=== PATIENT | male | born 1995 | race American Indian/Alaskan Native ===

== ENCOUNTER 2020-12-03 04:08 | Emergency (ER) | payer SELFPAY ==
[2020-12-03] MEDS ORDERED: SODIUM CHLORIDE 0.9% 1000 ML 1,000 ML IV ONE ×4 (04:25→12:43)
--- NOTE | 2020-12-03 04:28 | Event Note ---
ED Screening Note Date of service: 12/03/20 Time: 04:26 ED Screening Note: This is a 24-year-old -[place] male who presents for right flank pain with hematuria x2 days. Patient states nausea no vomiting to this point no fever or chills. There is dysuria frequency and urgency. No history of renal stones. This initial assessment/diagnostic orders/clinical plan/treatment(s) is/are subject to change based on patients health status, clinical progression and re- assessment by fellow clinical providers in the ED. Further treatment and workup at subsequent clinical providers discretion. Patient/guardian urged not to elope from the ED as their condition may be serious if not clinically assessed and managed. Initial orders include: ua, cbc, cmp, iv, ct abd pelvis
[2020-12-03 05:14] LABS: Hematocrit 44.3 % (35.5-45.6); Hemoglobin 15.4 gm/dl (11.8-15.2); Mean Corpuscular HGB Conc 35 % (32-34); Mean Corpuscular Volume 84 fl (84-94); Platelet Count 166 K/mm3 (140-440); Red Blood Count 5.29 M/mm3 (3.65-5.03); Red Cell Distribution Width 13.1 % (13.2-15.2)
[2020-12-03 05:49] LABS: Alanine Aminotransferase 259 units/L (7-56); Albumin 3.9 g/dL (3.9-5); BUN/Creatinine Ratio 12; Blood Urea Nitrogen 11 mg/dL (9-20); Calcium 8.5 mg/dL (8.4-10.2); Hemolysis Index 13
--- NOTE | 2020-12-03 05:56 | Cat Scan Report ---
CT ABDOMEN AND PELVIS WITHOUT CONTRAST HISTORY: Right-sided flank pain. COMPARISON: None TECHNIQUE: Routine abdominal and pelvic CT exam performed without contrast. Lack of intravenous cont rast limits evaluation of the vascular and solid organs.. All CT scans at this location are performed using CT dose reduction for ALARA by means of automated exposure control. FINDINGS: CT ABDOMEN: Lung Bases: No significant abnormality. Liver: No significant abnormality. Biliary: No significant abnormality. Spleen: No significant abnormality. Unenlarged. Pancreas: No significant abnormality. Adrenals: No significant abnormality. Kidneys: No significant abnormality. Lymphatics: No lymphadenopathy. Vasculature: No significant abnormality. Bowel/Peritoneum: No significant abnormality. No free air. No free fluid. Normal appendix. CT PELVIC: : No significant abnormality. Lymphatics: No lymphadenopathy. Osseous Structures: No aggressive appearing osseous lesions. Additional Findings: None IMPRESSION: 1. No acute findings. Signer Name: Victor Hugo Monteiro MD Signed: 12/03/2020 5:52 AM Workstation Name: [id number]
[2020-12-03 06:22] LABS: Anisocytosis 1+; Total Cells Counted 100
[2020-12-03 06:23] LABS: Platelet Estimate Consistent w Auto
--- NOTE | 2020-12-03 07:09 | Emergency Department Report ---
HPI - General Chief Complaint: Abdominal Pain Time Seen by Provider: 12/03/20 06:52 - HPI HPI: Room 36 The patient is a 24-year-old male present with a chief complaint of "feeling bad." Patient states 5 days ago he developed diarrhea, feeling weak and dark urine. Patient complain of bilateral side pain and nausea without vomiting. Patient states he had a subjective fever and took TheraFlu. Patient denies cough or dysuria. Patient admits to periumbilical abdominal pain which began around the same time. Of note the patient is HIV positive and has never been on medication since diagnosed 10 years ago. Patient is not aware of his CD4 count ED Past Medical Hx - Past Medical History Previous Medical History?: Yes Hx HIV: Yes (Unknown CD4) - Surgical History Past Surgical History?: No - Family History Family history: no significant - Social History Smoking Status: Current Every Day Smoker (1/7 pack/day) Substance Use Type: Alcohol (Occasional), Marijuana ED Review of Systems ROS: Stated complaint: BACK PAIN/ URINATING BLOOD Other details as noted in HPI Constitutional: fever (Subjective) Eyes: denies: eye pain ENT: denies: throat pain Respiratory: denies: cough Cardiovascular: denies: chest pain Endocrine: no symptoms reported Gastrointestinal: abdominal pain, nausea, diarrhea. denies: vomiting Genitourinary: denies: dysuria, hematuria Musculoskeletal: back pain Neurological: denies: headache Physical Exam - Physical Exam Vital Signs: Vital Signs 12/03/20 04:23 Temperature 98.9 F Pulse Rate 104 H Respiratory 18 Rate Blood Pressure 121/75 O2 Sat by Pulse 98 Oximetry Physical Exam: GENERAL: The patient is well-developed well-nourished male lying on stretcher not appearing to be in acute distress. [] HEENT: Normocephalic. Atraumatic. Extraocular motions are intact. Patient has moist mucous membranes. NECK: Supple. Trachea midline CHEST/LUNGS: Clear to auscultation. There is no respiratory distress noted. HEART/CARDIOVASCULAR: Regular. There is no tachycardia. There is no gallop rub or murmur. ABDOMEN: Abdomen is soft, with tenderness to palpation in the midepigastric r egion. Patient has normal bowel sounds. There is no abdominal distention. SKIN: There is no rash. There is no edema. There is no diaphoresis. NEURO: The patient is awake, alert, and oriented. The patient is cooperative. The patient has no focal neurologic deficits. The patient has normal speech MUSCULOSKELETAL: There is bilateral CVA tenderness left greater than right. There is no limitation range of motion. There is no evidence of acute injury. ED Course Vital Signs 12/03/20 04:23 Temperature 98.9 F Pulse Rate 104 H Respiratory 18 Rate Blood Pressure 121/75 O2 Sat by Pulse 98 Oximetry ED Medical Decision Making - Lab Data Result diagrams: 12/03/20 04:29 12/03/20 08:48 Laboratory Tests 12/03/20 12/03/20 12/03/20 04:26 04:29 04:30 WBC 6.7 RBC 5.29 H Hgb 15.4 H Hct 44.3 MCV 84 MCH 29 MCHC 35 H RDW 13.1 L Plt Count 166 [place] % (Auto) Refinery Operator Reforming Unit Add Manual Diff Complete Total Counted 100 Seg Neuts % (Manual) 59.0 Lymphocytes % (Manual) 23.0 Reactive Lymphs % (Man) 1.0 Monocytes % (Manual) 16.0 H Eosinophils % (Manual) 1.0 Nucleated RBC % Not Reportable Seg Neutrophils # Man 4.0 Band Neutrophils # 0.0 Lymphocytes # (Manual) 1.5 Abs React Lymphs (Man) 0.1 Monocytes # (Manual) 1.1 H Eosinophils # (Manual) 0.1 Basophils # (Manual) 0.0 Metamyelocytes # 0.0 Myelocytes # 0.0 Promyelocytes # 0.0 Blast Cells # 0.0 WBC Morphology Not Reportable Hypersegmented Neuts Not Reportable Hyposegmented Neuts Not Reportable Hypogranular Neuts Not Reportable Smudge Cells Not Reportable Toxic Granulation Not Reportable Toxic Vacuolation Not Reportable Dohle Bodies Not Reportable Pelger-Huet Anomaly Not Reportable Buddy Rods Not Reportable Platelet Estimate Consistent w auto Clumped Platelets Not Reportable Plt Clumps, EDTA Not Reportable Large Platelets Not Reportable Giant Platelets Not Reportable Platelet Satelliting Not Reportable Plt Morphology Comment Not Reportable RBC Morphology Not Reportable Dimorphic RBCs Not Reportable Polychromasia Not Reportable Hypochromasia Not Reportable Poikilocytosis Not Reportable Anisocytosis 1+ Microcytosis Not Reportable Macrocytosis Not Reportable Spherocytes Not Reportable Pappenheimer Bodies Not Reportable Sickle Cells Not Reportable Target Cells Not Reportable Tear Drop Cells Not Reportable Ovalocytes Not Reportable Helmet Cells Not Reportable [place] Bodies Not Reportable [place] Rings Not Reportable Felicita Cells Not Reportable Bite Cells Not Reportable Crenated Cell Not Reportable Elliptocytes Not Reportable Acanthocytes (Spur) Not Reportable Rouleaux Not Reportable Hemoglobin C Crystals Not Reportable Schistocytes Not Reportable Malaria parasites Not Reportable Ran Bodies Not Reportable Hem Pathologist Commnt No Sodium 132 L Potassium 4.2 Chloride 93.2 L Carbon Dioxide 28 Anion Gap 15 BUN 11 Creatinine 0.9 Estimated GFR > 60 BUN/Creatinine Ratio 12 Glucose 101 H Calcium 8.5 Total Bilirubin 0.40 AST 1670 H ALT 259 H Alkaline Phosphatase 64 Total Creatine Kinase Total Protein 8.0 Albumin 3.9 Albumin/Globulin Ratio 1.0 Lipase Urine Color Nelli Urine Turbidity Cloudy Urine pH TNR Ur Specific [place] TNR Urine Protein TNR Urine Glucose (UA) TNR Urine Ketones TNR Urine Blood TNR Urine Nitrite TNR Ur Reducing Substances TNR Urine Bilirubin TNR Urine Ictotest TNR Urine Urobilinogen TNR Ur Leukocyte Esterase TNR Urine WBC (Auto) 4.0 Urine RBC (Auto) 2.0 U Epithel Cells (Auto) 1.0 Urine Bacteria (Auto) 3+ 12/03/20 12/03/20 12/03/20 04:30 08:48 08:48 WBC RBC Hgb Hct MCV MCH MCHC RDW Plt Count [place] % (Auto) Add Manual Diff Total Counted Seg Neuts % (Manual) Lymphocytes % (Manual) Reactive Lymphs % (Man) Monocytes % (Manual) Eosinophils % (Manual) Nucleated RBC % Seg Neutrophils # Man Band Neutrophils # Lymphocytes # (Manual) Abs React Lymphs (Man) Monocytes # (Manual) Eosinophils # (Manual) Basophils # (Manual) Metamyelocytes # Myelocytes # Promyelocytes # Blast Cells # WBC Morphology Hypersegmented Neuts Hyposegmented Neuts Hypogranular Neuts Smudge Cells Toxic Granulation Toxic Vacuolation Dohle Bodies Pelger-Huet Anomaly Buddy Rods Platelet Estimate Clumped Platelets Plt Clumps, EDTA Large Platelets Giant Platelets Platelet Satelliting Plt Morphology Comment RBC Morphology Dimorphic RBCs Polychromasia Hypochromasia Poikilocytosis Anisocytosis Microcytosis Macrocytosis Spherocytes Pappenheimer Bodies Sickle Cells Target Cells Tear Drop Cells Ovalocytes Helmet Cells [place] Bodies [place] Rings Felicita Cells Bite Cells Crenated Cell Elliptocytes Acanthocytes (Spur) Rouleaux Hemoglobin C Crystals Schistocytes Malaria parasites Ran Bodies Hem Pathologist Commnt Sodium 133 L Potassium 4.1 Chloride 95.6 L Carbon Dioxide 31 H Anion Gap 11 BUN 10 Creatinine 0.8 Estimated GFR > 60 BUN/Creatinine Ratio 13 Glucose 94 Calcium 8.1 L Total Bilirubin 0.30 AST 1528 H ALT 241 H Alkaline Phosphatase 54 Total Creatine Kinase 7 L 57790 H Total Protein 7.1 Albumin 3.4 L Albumin/Globulin Ratio 0.9 Lipase 38 Urine Color Urine Turbidity Urine pH Ur Specific [place] Urine Protein Urine Glucose (UA) Urine Ketones Urine Blood Urine Nitrite Ur Reducing Substances Urine Bilirubin Urine Ictotest Urine Urobilinogen Ur Leukocyte Esterase Urine WBC (Auto) Urine RBC (Auto) U Epithel Cells (Auto) Urine Bacteria (Auto) - Differential Diagnosis Rhabdomyolysis, pancreatitis, peptic ulcer disease, pyelonephritis, Critical care attestation.: If time is entered above; I have spent that time in minutes in the direct care of this critically ill patient, excluding procedure time. ED Disposition Clinical Impression: Rhabdomyolysis, Transaminitis Disposition: OP ADMIT IP TO THIS HOSP Is pt being admited?: Yes Does the pt Need Aspirin: No Condition: Fair Referrals: PRIMARY CARE, [Primary Care Provider] - 3-5 Days Time of Disposition: 11:01 (Hospitalist notified (Dr. Pearson))
[2020-12-03 07:33] LABS: Bacteria,Urine 3+ /HPF (Negative)
[2020-12-03 07:44] LABS: Color,Urine Amber (Yellow)
[2020-12-03 07:45] LABS: Bilirubin,Urine TNR (Negative); Blood,Urine TNR (Negative); PH,Urine TNR (5.0-7.0); Protein,Urine TNR mg/dL (Negative)
[2020-12-03 07:46] LABS: Ictotest,Urine TNR (Negative); Urobilinogen,Urine TNR mg/dL (<2.0)
--- NOTE | 2020-12-03 08:57 | Ultrasound Report ---
ULTRASOUND ABDOMEN, LIMITED (RIGHT UPPER QUADRANT) INDICATION: Abdominal pain, elevated LFTs. COMPARISON: CT scan dated 12/03/2020 FINDINGS: Pancreas: Visualized portion shows no significant abnormality. Liver: Normal. Gallbladder: Normal. Bile ducts: Normal. Common Bile Duct measures 3 mm. Free fluid: None. Additional Findings: None. IMPRESSION: 1. No sonographic abnormality of the right upper quadrant. Signer Name: Robb Zelaya MD Signed: 12/03/2020 8:53 AM Workstation Name: [id number]
[2020-12-03 10:02] LABS: Alanine Aminotransferase 241 units/L (7-56); Albumin 3.4 g/dL (3.9-5); BUN/Creatinine Ratio 13; Blood Urea Nitrogen 10 mg/dL (9-20); Calcium 8.1 mg/dL (8.4-10.2); Hemolysis Index 0
[2020-12-03 12:50] LABS: Alanine Aminotransferase 220 units/L (7-56); Albumin 3.1 g/dL (3.9-5); Blood Urea Nitrogen 9 mg/dL (9-20); Hemolysis Index 20
[2020-12-03 12:55] LABS: BUN/Creatinine Ratio 13
[2020-12-03 13:34] VITALS: BP 138/73
[2020-12-03 14:28] LABS: Hepatitis B Surface Antigen Non-Reactive (Negative); Hepatitis C Virus Antibody Non-Reactive (NonReactive)
--- NOTE | 2020-12-03 14:47 | Event Note ---
Date: 12/03/20 24 YO Male with Nicotine Dependence, Medication Noncompliance, HIV presents to ED for evaluation. Pt presents to ED for evaluation of loose stools, feeling weak and dark urine. Patient seen and evaluated in the emergency department. All lab and imaging studies reviewed. Patient treated with IV fluid resuscitation therapy with reported improvement in symptoms. Patient counseled regarding noncompliance with HIV treatment, as well as lack of outpatient follow-up. Patient signed out AMA prior to completion of work-up. Patient informed that further noncompliance may result in worsening symptoms and . Patient knowledges understanding instructions and signed out AGAINST MEDICAL ADVICE. Case management consulted. Patient given follow-up for outpatient infectious disease clinic. GENERAL: The patient is well-developed well-nourished male lying on stretcher not appearing to be in acute distress. [] HEENT: PERRL/EOMI. Normocephalic. Atraumatic. Extraocular motions are intact. Patient has moist mucous membranes. NECK: Supple. Trachea midline CHEST/LUNGS: Clear to auscultation. There is no respiratory distress noted. HEART/CARDIOVASCULAR: Regular. There is no tachycardia. There is no gallop rub or murmur. ABDOMEN: Abdomen is soft, NT, ND, +BS, No HSM. Patient has normal bowel sounds. There is no abdominal distention. SKIN: There is no rash. There is no edema. There is no diaphoresis. NEURO: The patient is awake, alert, and oriented. The patient is cooperative. The patient has no focal neurologic deficits. The patient has normal speech MUSCULOSKELETAL: 5/5 BUE/BLE. There is no limitation range of motion. There is no evidence of acute injury.
== END 2020-12-03 13:36 | disposition left against medical advice (07) ==
LOC: ED 04:08
DX: M62.82 Rhabdomyolysis (principal); R74.01 Elevation of levels of liver transaminase levels; F17.200 Nicotine dependence, unspecified, uncomplicated; F12.10 Cannabis abuse, uncomplicated; Z21 Asymptomatic human immunodeficiency virus [HIV] infection status; Z79.899 Other long term (current) drug therapy
CPT/HCPCS: 36415; 74176; 76705; 80053; 80074; 81001; 82550; 83690; 85007; 85025; 96360; 96361; 99284; J7030

== ENCOUNTER 2021-07-31 09:28 | Emergency (ER) | payer SELFPAY ==
--- NOTE | 2021-07-31 10:05 | Emergency Department Report ---
ED General Adult HPI - General Chief complaint: Back Pain/Injury Stated complaint: SWOLLEN TESTICAL Time Seen by Provider: 07/31/21 10:01 Source: patient Mode of arrival: Ambulatory Limitations: No Limitations - History of Present Illness Initial comments: Patient is 25 years old male with history of HIV. Patient presented to the ER complaining of bilateral scrotal swelling and pain for the last 3 days. Patient denied any recent injury or trauma. Patient also describes a burning sensation with urination. Patient denied any fever or chills. Patient stated that he is compliant with his medication. -: days(s) (3) - Related Data Allergies Allergy/AdvReac Type Severity Reaction Status Date / Time No Known Allergies Allergy Verified 07/31/21 09:29 ED Review of Systems ROS: Stated complaint: SWOLLEN TESTICAL Other details as noted in HPI Comment: All other systems reviewed and negative Constitutional: denies: chills, fever Respiratory: denies: cough, shortness of breath, SOB with exertion, SOB at rest Cardiovascular: denies: chest pain, palpitations Gastrointestinal: denies: abdominal pain, nausea, vomiting Genitourinary: urgency, dysuria, testicular pain Musculoskeletal: back pain Neurological: denies: headache, weakness, numbness, paresthesias, confusion, abnormal gait ED Past Medical Hx - Past Medical History Hx HIV: Yes (Unknown CD4) - Social History Smoking Status: Current Every Day Smoker (1/7 pack/day) Substance Use Type: Alcohol (Occasional), Marijuana ED Physical Exam - General Limitations: No Limitations General appearance: alert, in no apparent distress - Head Head exam: Present: atraumatic, normocephalic, normal inspection - Eye Eye exam: Present: normal appearance, PERRL - ENT ENT exam: Present: mucous membranes moist - Respiratory Respiratory exam: Present: normal lung sounds bilaterally - Cardiovascular Cardiovascular Exam: Present: regular rate, normal rhythm, normal heart sounds - GI/Abdominal GI/Abdominal exam: Present: soft, normal bowel sounds. Absent: distended, tenderness, guarding, rebound, rigid, mass, bruit, pulsatile mass, hernia - exam: Present: scrotal swelling - Extremities Exam Extremities exam: Present: normal inspection, full ROM, normal capillary refill. Absent: tenderness - Back Exam Back exam: Present: normal inspection, full ROM. Absent: CVA tenderness (R), CVA tenderness (L) - Neurological Exam Neurological exam: Present: alert, oriented X3, CN II-XII intact, normal gait. Absent: motor sensory deficit - Psychiatric Psychiatric exam: Present: normal mood - Skin Skin exam: Present: warm, intact, normal color ED Course Vital Signs 07/31/21 09:33 Temperature 99.1 F Pulse Rate 119 H Respiratory 18 Rate Blood Pressure 121/80 O2 Sat by Pulse 97 Oximetry ED Medical Decision Making - Radiology Data Radiology results: report reviewed - Medical Decision Making Patient is 25 years old male with history of HIV. Patient presented to the ER complaining of bilateral scrotal swelling and pain for the last 3 days. Patient denied any recent injury or trauma. Patient also describes a burning sensation with urination. Patient denied any fever or chills. Patient stated that he is compliant with his medication. Patient remained stable in the ER with stable vital sign. Urine showed a positive UTI. Testicular ultrasound showed no evidence of decreased blood flow. However it showed a right hydrocele. Patient given prescription for ciprofloxacin. Patient advised to follow-up with his primary doctor in the next 2 to 3 days and to return to the ER if she develop any new symptoms. Critical care attestation.: If time is entered above; I have spent that time in minutes in the direct care of this critically ill patient, excluding procedure time. ED Disposition Clinical Impression: UTI (urinary tract infection), Hydrocele Disposition: HOME / SELF CARE / HOMELESS Is pt being admited?: No Condition: Stable Instructions: Hydrocele, Adult, Urinary Tract Infection, Adult Referrals: PRIMARY CARE,MD [Primary Care Provider] - 3-5 Days
[2021-07-31 10:29] VITALS: BP 121/80
[2021-07-31 11:41] LABS: Bilirubin,Urine NEG (Negative); Blood,Urine NEG (Negative); Color,Urine Yellow (Yellow); Mucus,Urine 2+ /HPF
--- NOTE | 2021-07-31 11:46 | Ultrasound Report ---
ULTRASOUND SCROTUM INDICATION / CLINICAL INFORMATION: SCROTAL SWELLING. COMPARISON: None available. FINDINGS -- RIGHT: TESTIS: Size = 3.3 cm. - Appearance: No significant abnormality. - Cyst / Mass: None. - Color Doppler Flow: No significant abnormality. EPIDIDYMIS: No significant abnormality. HYDROCELE: There is a small right hydrocele. VARICOCELE: None demonstrated. FINDINGS -- LEFT: TESTIS: Size = 2.7 cm. - Appearance: No significant abnormality. - Cyst / Mass: None. - Color Doppler Flow: No significant abnormality. EPIDIDYMIS: No significant abnormality. HYDROCELE: None. VARICOCELE: None demonstrated. ADDITIONAL FINDINGS: None. IMPRESSION: 1. There is a small right hydrocele. 2. There is arterial flow in both testicles. Signer Name: Robb Zelaya MD Signed: 07/31/2021 11:41 AM Workstation Name: [id number]
== END 2021-07-31 13:49 | disposition home or self-care (01) ==
LOC: ED 09:28
DX: N43.3 Hydrocele, unspecified (principal); N39.0 Urinary tract infection, site not specified; F17.200 Nicotine dependence, unspecified, uncomplicated; F12.90 Cannabis use, unspecified, uncomplicated; Z72.89 Other problems related to lifestyle; Z79.899 Other long term (current) drug therapy
CPT/HCPCS: 81001; 87086; 93975; 99283